=== PATIENT | male | born 1935 | race Hispanic/Latino ===

== ENCOUNTER 2019-09-27 23:47 | Emergency (ER) | payer MEDICARE ==
[2019-09-28] MEDS ORDERED: LIDOCAINE 2%/EPINEPHRINE 1:100,000 VIAL (20 ML) INFILTRATI ONE (00:19)
[2019-09-28] MEDS ORDERED: SODIUM CHLORIDE IRRI 500 ML 1,000 ML IR ONE (00:20)
--- NOTE | 2019-09-28 00:56 | Emergency Department Report ---
ED Head Trauma HPI - General Stated complaint: FALL/HEAD LACERATION Time Seen by Provider: 09/28/19 00:16 - History of Present Illness Initial comments: 83-year-old male presents to ED from home after having a ground-level fall. Patient sustained laceration to the head. No LOC. Patient denies headache currently. Patient denies neck pain. reports patient has history of multiple falls. Patient has history of dementia. MD Complaint: head injury, fall -: This evening Mechanism of Injury: mechanical fall Location: parietal Loss of Consciousness: no Place: home Radiation: none Severity: mild Other Injuries: none Associated Symptoms: denies: nausea, vomiting, vertigo, weakness, tingling, neck pain - Related Data Allergies/Adverse reactions: Allergies Allergy/AdvReac Type Severity Reaction Status Date / Time No Known Allergies Allergy Verified 09/28/19 03:16 ED Review of Systems ROS: Stated complaint: FALL/HEAD LACERATION Other details as noted in HPI Comment: All other systems reviewed and negative Constitutional: denies: fever Respiratory: denies: cough, shortness of breath Cardiovascular: denies: chest pain Neurological: denies: headache, weakness, numbness ED Past Medical Hx - Past Medical History Previous Medical History?: Yes Hx Dementia: Yes (Per EMS) ED Physical Exam - General General appearance: alert, in no apparent distress - Head Head exam: Present: other (3 cm left parietal laceration) - Eye Eye exam: Present: normal appearance, PERRL, EOMI - ENT ENT exam: Present: mucous membranes moist - Neck Neck exam: Present: normal inspection, full ROM. Absent: tenderness - Respiratory Respiratory exam: Present: normal lung sounds bilaterally. Absent: respiratory distress - Cardiovascular Cardiovascular Exam: Present: regular rate, normal rhythm - GI/Abdominal GI/Abdominal exam: Present: soft. Absent: distended, tenderness - Extremities Exam Extremities exam: Present: normal inspection - Neurological Exam Neurological exam: Present: alert, oriented X3, CN II-XII intact. Absent: motor sensory deficit - Psychiatric Psychiatric exam: Present: normal affect, normal mood - Skin Skin exam: Present: warm, dry, intact, normal color ED Course Vital Signs 09/28/19 09/28/19 09/28/19 00:59 01:07 01:12 Temperature 98.4 F 98.4 F Pulse Rate 97 H 63 61 Respiratory 16 16 16 Rate Blood Pressure 165/58 Blood Pressure 165/58 153/58 [Left] O2 Sat by Pulse 97 97 97 Oximetry - Laceration /Wound Repair Head Wound Location: head Wound Length (cm): 3 Wound's Depth, Shape: superficial Wound Explored: clean Irrigated w/ Saline (ccs): 100 Number of Sutures: 4 (linda) - Lab Data Lab Results 09/28/19 Range/Units 04:20 POC Glucose 307 H (70-105) - Radiology Data Radiology results: report reviewed, image reviewed - Medical Decision Making CT Head negative. Scalp laceration repaired w/ linda. Pt denies headache. Pt is stable. Will d/c home. - Differential Diagnosis skull fracture, intracranial injury, concussion Critical care attestation.: If time is entered above; I have spent that time in minutes in the direct care of this critically ill patient, excluding procedure time. ED Disposition Clinical Impression: Fall, Scalp laceration, Head injury, acute Disposition: DC-01 TO HOME OR SELFCARE Is pt being admited?: No Condition: Stable Instructions: Laceration (ED), Minor Head Injury (ED), Staple Care (ED) Additional Instructions: Staple removal in 10 days. Referrals: CARLOS BOWIE MD [Primary Care Provider] - 3-5 Days Time of Disposition: 03:00
--- NOTE | 2019-09-28 02:44 | Cat Scan Report ---
CT HEAD WITHOUT CONTRAST INDICATION / CLINICAL INFORMATION: Pt had a fall with injury and laceration to top/back of his head. No L.O.C.. TECHNIQUE: All CT scans at this location are performed using CT dose reduction for ALARA by means of automated e xposure control. COMPARISON: CT dated 02/22/11 FINDINGS: HEMORRHAGE: None. EXTRA-AXIAL SPACES: Moderately prominent likely related to cortical atrophy. VENTRICULAR SYSTEM: Normal in size and morphology for the patient's age. 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 White matter microangiop athy has progressed. No acute territorial infarct. MIDLINE SHIFT OR HERNIATION: None. CEREBELLUM / BRAINSTEM: No significant abnormality. ORBITS: Normal as visualized. SOFT TISSUES of HEAD: Laceration of the posterior left scalp with skin linda present. CALVARIUM: No significant abnormality. PARANASAL SINUSES / MASTOID AIR CELLS: Right maxillary mucous retention cyst is unchanged. ADDITIONAL FINDINGS: None. IMPRESSION: 1. No acute intracranial abnormality. 2. Chronic and age-related findings. 3. Posterior left scalp soft tissue laceration. Signer Name: Manisha Fenton MD Signed: 09/28/2019 2:40 AM Workstation Name: [id number]
[2019-09-28 12:14] VITALS: BP 147/84
== END 2019-09-28 11:19 | disposition home or self-care (01) ==
LOC: ED 23:47
DX: S01.01XA Laceration without foreign body of scalp, initial encounter (principal); F03.90 Unspecified dementia, unspecified severity, without behavioral disturbance, psychotic disturbance, mood disturbance, and anxiety; W19.XXXA Unspecified fall, initial encounter; Y93.89 Activity, other specified; Y92.89 Other specified places as the place of occurrence of the external cause; Y99.8 Other external cause status
CPT/HCPCS: 70450; 82962